=== PATIENT | female | born 1985 | race Two or more races ===

== ENCOUNTER 2020-03-30 00:39 | Emergency (ER) | payer BC ==
[~2020-03-30] VITALS: Ht 170.2 cm; Wt 54.4 kg
[2020-03-30 01:00] VITALS: BP_SYST 6
[2020-03-30] MEDS: ALPRAZolam 0.25 MG TABLET PO ONE (01:33)
[2020-03-30 02:10] VITALS: BP_SYST 6
== END 2020-03-30 02:10 | disposition home or self-care (01) ==
LOC: SED 00:39
DX: S00.03XA Contusion of scalp, initial encounter (principal); S60.011A Contusion of right thumb without damage to nail, initial encounter; Z88.1 Allergy status to other antibiotic agents; Y04.0XXA Assault by unarmed brawl or fight, initial encounter; Y93.89 Activity, other specified; Y92.89 Other specified places as the place of occurrence of the external cause; Y99.8 Other external cause status
CPT/HCPCS: 70450-TC; 99284